=== PATIENT | female | born 1980 | race Caucasian/White ===

== ENCOUNTER 2016-11-08 12:08 | Emergency (ER) | payer BC ==
[2016-11-08 12:34] VITALS: BP 130/80; PULSE 84; TEMP 97.8; BMI 36.3
[2016-11-08] MEDS ORDERED: ACETAMINOPHEN 325 MG TABLET (FP) ONE (12:58)
[2016-11-08] MEDS ORDERED: ACETAMINOPHEN 325 MG TABLET (FP) PO ONE (13:00)
--- NOTE | 2016-11-08 13:05 | PDOC ---
History of Present Illness - General Chief Complaint: Pain, Acute Stated Complaint: ABD AND BACK PAIN Time Seen by Provider: 11/08/16 12:36 - History of Present Illness Initial Comments: 11/08/16 13:01 36-year-old female with a negative past medical history, she is on no medications, last menstrual period 10/26/16, normal and on time [facility] [facility] history- SP Ab(stillborn), TAB 2 Patient is complaining of right lower quadrant pain radiating to her right back and right pelvis for a month Initially it was off and on, and then it is been gradually progressive, and becoming more severe She states it was worse today She denies any associated dysuria urgency or frequency or blood in her urine She denies any fevers or chills She denies any vaginal discharge spotting or bleeding She denies any prior abdominal surgery She denies any change in the pain with musculoskeletal maneuvers She denies any change in her bowel movements, and the pain is not worse when having a bowel movement She states that she was seen in an urgent care center, but they were unable to make a diagnosis She states her last Pap smear was in June and was normal She denies any other complaints at this time, and the remainder of the review of systems is negative Past History - Past Medical History Allergies/Adverse Reactions: Allergies Allergy/AdvReac Type Severity Reaction Status Date / Time codeine Allergy Verified 11/08/16 12:19 Home Medications: Ambulatory Orders No Known Home Medication 11/08/16 Asthma: No Cancer: No Cardiac Disorders: No Diabetes: No HTN: No Seizures: No Thyroid Disease: No - Reproductive History Is Patient Now?: No - Psycho/Social/Smoking Cessation Hx Suicidal Ideation: No Smoking History: Never smoked Have you smoked in the past 12 months: No Information on smoking cessation initiated: No Hx Alcohol Use: No Drug/Substance Use Hx: No Substance Use Type: None Hx Substance Use Treatment: No Review of Systems - Review of Systems Able to Perform ROS?: Yes Comments:: 11/08/16 13:03 12 point review of systems is as per history of present illness and otherwise negative *Physical Exam - Vital Signs Last Vital Signs Temp Pulse Resp BP Pulse Ox 97.8 F 84 16 130/80 100 11/08/16 12:24 11/08/16 12:24 11/08/16 12:24 11/08/16 12:24 11/08/16 12:24 - Physical Exam Comments: 11/08/16 13:03 Physical exam Last Vital Signs Temp Pulse Resp BP Pulse Ox 97.8 F 84 16 130/80 100 11/08/16 12:24 11/08/16 12:24 11/08/16 12:24 11/08/16 12:24 11/08/16 12:24 GENERAL: The patient is awake, alert, and fully oriented, and in no apparent distress. HEAD: Normal with no signs of trauma. EYES: Sclera Anicteric, conjunctiva normal ENT: Mucous membranes moist NECK: Normal range of motion, supple LUNGS: Breath sounds equal, clear to auscultation bilaterally. No wheezes, and no crackles. HEART: Regular rate and rhythm, normal S1 and S2 without murmur, rub or gallop. BACK: There is no C-spine T-spine or LS-spine tenderness There is some right paraspinal and right flank tenderness There is no left-sided tenderness ABDOMEN: Normal active bowel sounds without apparent spinal megaly There is right mid lateral and right lower quadrant tenderness to palpation No other abdominal tenderness is noted PELVIC EXAMINATION: External genitalia: Normal without lesions Vagina: There is a small amount of discharge in the vaginal vault Cervix: Cervix is long and closed with some mild cervical motion tenderness Uterus: Uterus is normal in size and mildly tender Adnexa: There is + right adnexal tenderness, there is no left adnexal tenderness EXTREMITIES: Normal range of motion, no edema. No clubbing or cyanosis. No cords, erythema, or tenderness. NEUROLOGICAL: Cranial nerves II through XII grossly intact. Normal speech, normal gait. PSYCH: Normal mood, normal affect. SKIN: Warm, Dry, normal turgor, no rashes or lesions noted. ED Treatment Course - LABORATORY CBC & Chemistry Diagram: 11/08/16 13:00 11/08/16 13:00 - RADIOLOGY Radiology Studies Ordered: Category Date Time Status KIDNEY / RENAL US [US] Stat Ultrasound 11/08/16 12:59 Ordered PELVIC / BLADDER US [US] Stat Ultrasound 11/08/16 12:59 Ordered TRANSVAGINAL ULTRASOUND US [US] Stat Ultrasound 11/08/16 12:59 Ordered Medical Decision Making - Medical Decision Making 11/08/16 14:45 Laboratory Results - last 24 hr 0111/08/16 11/08/16 13:00 13:00 13:00 WBC 6.6 RBC 4.56 Hgb 12.6 Hct 38.3 MCV 83.9 MCHC 32.9 RDW 13.4 Plt Count 243 MPV 8.6 Sodium 138 Potassium 3.7 Chloride 104 Carbon Dioxide 27 Anion Gap 7 L BUN 11 Creatinine 0.7 Creat Clearance w eGFR > 60 Random Glucose 97 Calcium 9.1 Total Bilirubin 0.4 AST 23 ALT 19 Alkaline Phosphatase 99 H Total Protein 7.3 Albumin 4.1 Urine Color Yellow Urine Appearance Clear Urine pH 5.5 Ur Specific [place] 1.015 Urine Protein Negative Urine Glucose (UA) Negative Urine Ketones Trace Urine Blood Trace-intact Urine Nitrite Negative Urine Bilirubin Negative Urine Urobilinogen 0.2 e.u/dl Ur Leukocyte Esterase 1+ H Urine RBC 3-5 Urine WBC 5-10 Ur Epithelial Cells 4-6 Urine HCG, Qual 11/08/16 13:00 WBC RBC Hgb Hct MCV MCHC RDW Plt Count MPV Sodium Potassium Chloride Carbon Dioxide Anion Gap BUN Creatinine Creat Clearance w eGFR Random Glucose Calcium Total Bilirubin AST ALT Alkaline Phosphatase Total Protein Albumin Urine Color Urine Appearance Urine pH Ur Specific [place] Urine Protein Urine Glucose (UA) Urine Ketones Urine Blood Urine Nitrite Urine Bilirubin Urine Urobilinogen Ur Leukocyte Esterase Urine RBC Urine WBC Ur Epithelial Cells Urine HCG, Qual Negative 11/08/16 14:45 Labwork reviewed Ultrasound of the kidney pelvis and transvaginal Morphologically normal kidneys and urinary bladder with no evidence of nephrolithiasis, hydronephrosis, or acute pathology Small post void residual Retroverted uterus with small right ovarian cysts and free left adnexal fluid There is no evidence of adnexal masses As per the Tech (and my review of US) -there is good flow to the right ovary without evidence of torsion 11/08/16 17:31 CT scan of the abdomen and pelvis with contrast There is a 1.7 cm right ovarian cyst No CT signs of acute appendicitis Small umbilical hernia containing fat only No definite CT evidence of acute pathology Uncertain etiology of the pain, other than possibly the right ovarian cyst, There is some left adnexal fluid noted, but there is no tenderness at all and no pain on the left side, as all the pain is on the right Patient did have a mild vaginal discharge-will treat with Rocephin and Zithromax pending STD studies Patient given copies of all studies to take to her [facility] and primary care physician Impression-right lower quadrant pain radiating to her right back and right pelvis for a month, right ovarian cyst *DC/Admit/Observation/Transfer Diagnosis at time of Disposition: Right flank pain, RLQ cramping, Right ovarian cyst - Discharge Dispostion Disposition: HOME Condition at time of disposition: Stable - Patient Instructions Additional Instructions: Rest, Tylenol or Motrin for discomfort Followup with your primary care physician in 24-48 hours Return immediately if you worsen in any way You will be notified if your urine culture is positive, or any of the STD screen swabs are positive You have been given copies of all results from today to take to your doctor - Post Discharge Activity Work/School Note: Back to Work
[2016-11-08 13:07] LABS: PH,URINE 5.5 (4.5-8); URINE APPEARANCE Clear; URINE BILIRUBIN Negative (NEGATIVE); URINE BLOOD Trace-intact (NEGATIVE); URINE GLUCOSE (UA) Negative (NEGATIVE); URINE KETONE Trace (NEGATIVE); URINE NITRITE Negative (NEGATIVE); URINE PROTEIN Negative (NEGATIVE); URINE UROBILINOGEN 0.2 E.U/dl (0.2-1.0)
[2016-11-08 13:11] LABS: URINE COLOR YELLOW; URINE LEUK ESTERASE 1+ (NEGATIVE)
[2016-11-08 13:25] LABS: MCH 27.6 pg (25.7-33.7); MCHC 32.9 g/dl (32.0-36.0); MEAN CELL VOLUME 83.9 fl (80-96); MEAN PLT VOLUME 8.6 fl (7.5-11.1); PLATELET COUNT 243 K/MM3 (134-434); RDW 13.4 % (11.6-15.6); WHITE BLOOD COUNT 6.6 K/mm3 (4.0-10.0)
[2016-11-08 13:34] LABS: ALBUMIN 4.1 g/dl (3.5-5.0); ALK PHOS 99 U/L (32-92); ANION GAP 7 (8-16); BILIRUBIN,TOTAL 0.4 mg/dl (0.2-1.0); CALCIUM 9.1 mg/dl (8.4-10.2); CO2 27 mmol/L (22-28); CREATININE 0.7 mg/dl (0.6-1.3); GLUCOSE,RANDOM 97 mg/dl (74-106); SGOT/AST 23 U/L (10-42); SGPT/ALT 19 U/L (10-40); TOT PROT 7.3 g/dl (6.4-8.3)
[2016-11-08] MEDS ORDERED: SODIUM CHLORIDE 1,000 ML IV SCH (15:00)
[2016-11-08] MEDS ORDERED: AZITHROMYCIN 1 GM PACKET PO ONE (17:39)
[2016-11-08] MEDS ORDERED: AZITHROMYCIN 1 GM PACKET ONE (17:59)
== END 2016-11-08 18:09 | disposition home or self-care (01) ==
LOC: FER 12:08
DX: R10.31 Right lower quadrant pain (principal); N83.201 Unspecified ovarian cyst, right side
CPT/HCPCS: 36415; 74177-TC; 76775-TC; 76830-TC; 76856-TC; 80053; 81003; 81015; 84703; 85027; 87086; 87491; 87591; 99282-25